=== PATIENT | male | born 1960 | race Caucasian/White ===

== ENCOUNTER 2016-09-25 17:44 | Emergency (ER) | payer BC ==
[~2016-09-25] VITALS: Ht 180.3 cm; Wt 89.1 kg
[2016-09-25 17:50] VITALS: TEMP 36.3; Ht 180.3 cm; Wt 89.1 kg
[2016-09-25] MEDS ORDERED: AMOX500T PO (18:13)
[2016-09-25] MEDS ORDERED: PRD/1 PO (18:13)
[2016-09-25] MEDS ORDERED: MoRPHine SULFATE 4 MG/ML 1 ML CARP\\VIAL IV STA (18:37)
[2016-09-25] MEDS ORDERED: ONDANSETRON INJ 2 MG/ML 2 ML VIAL IV STA (18:37)
[2016-09-25] MEDS ORDERED: PERCOCET HOME PACK PO ONE (19:15)
--- NOTE | 2016-09-25 19:35 | DIAGNOSTIC IMAGING REPORT ---
RIGHT WRIST 4 VIEWS CLINICAL HISTORY: Fall with right wrist pain. FINDINGS: 4 views of the right wrist are obtained. No prior studies are available for comparison at the time of dictation. The skeletal structures are well mineralized. There is an impacted and comminuted fracture of the distal radial metaphysis with intra-articular extension. There are small posteriorly distracted fragments. Mild apex volar angulation is noted. No additional fracture is seen. There is significant overlying soft tissue edema. The joint spaces of the wrist appear preserved. IMPRESSION: 1. Impacted and comminuted fracture of the distal radial metaphysis with intra-articular extension and overlying soft tissue edema as above. 2. No additional fracture is identified. Electronically signed by: Wilson Martinez M.D. 09/25/2016 7:33 PM
--- NOTE | 2016-09-25 20:13 | DIAGNOSTIC IMAGING REPORT ---
PA CHEST WITH RIGHT-SIDED RIB SERIES CLINICAL HISTORY: Fall with right-sided rib pain. FINDINGS: A PA chest radiograph with 4 additional views from a right-sided rib series are obtained. No prior studies are available for comparison at the time of dictation. The cardiomediastinal silhouette is unremarkable. The lungs and pleural spaces are clear. No pneumothorax is seen. There are acute and nondistracted right posterior seventh and eighth rib fractures. The remainder of the bony thorax is grossly intact. IMPRESSION: 1. The lungs are clear. 2. There are acute nondistracted right posterior seventh and eighth rib fractures. Electronically signed by: Wilson Martinez M.D. 09/25/2016 8:11 PM
[2016-09-25] MEDS ORDERED: OXYC-57 PO (20:26)
[2016-09-25 20:47] VITALS: BP 153/93; PULSE 83; O2SAT 96
--- NOTE | 2016-09-27 01:21 | EMERGENCY ROOM VISIT NOTE ---
ED Visit Note First contact with patient: 18:00 Chief Complaint: I fell off my truck and I think I broke my right arm. History of Present Illness: Mr. Peguero is a 55-year-old white male who ambulates into the ED accompanied by a female friend complaining of right lower arm pain and right sided rib pain. Patient reports approximately 20 minutes ago he accidentally fell out of his truck while he was sweeping the bed. He reports he fell to the ground. He believes he landed directly on his wrist. He reports before the fall there was no lightheadedness or dizziness, the time of the fall he did not strike his head and since the fall he has had no signs of head injury. Currently he is complaining of pain over the distal right radius and the right ribs. He rates his wrist discomfort 10/10. He describes this as a sharp and deep achy sensation. His pain worsens with all movement of the forearm, wrist and fingers. He has not identified any alleviating factors related to the pain. He reports he has not taken any medications for pain prior to arrival at the hospital. Associated with his pain he reports he has a tingling sensation throughout the fingers. He denies any associated symptoms including shoulder pain, elbow pain, proximal forearm pain. Additionally he denies any previous significant injuries or surgeries to the right upper extremity. Additionally he does complain of right anterior and posterior rib pain. He reports this is an achy sensation that becomes sharp with palpation and deep inspiration. His pain is nonradiating. He denies any associated symptoms with his rib pain including shortness of breath, difficulty breathing, cough. Additionally he denies chest pain, shortness of breath, abdominal pain, nausea/ vomiting. Review of Systems: As noted above in history of present illness. 8 body systems were reviewed and found to be negative as noted above. Past Medical History: Status post previous right knee and right wrist surgeries. Current Medications: Augmentin and prednisone. Allergies to Medications: Sulfa. Social History: Patient is currently employed; he feels safe in his home environment; he denies tobacco use and admits to alcohol use. Physical Examination: Vital Signs: Date Time Temp Pulse Resp B/P Pulse Ox O2 Delivery O2 Flow Rate FiO2 09/25/16 20:47 83 18 153/93 96 09/25/16 20:16 77 153/93 97 Room Air 09/25/16 17:50 36.3 94 18 196/132 97 Room Air GENERAL: 55-year-old male in moderate distress due to pain, nontoxic-appearing, afebrile and hemodynamically stable. NEUROLOGICAL: Awake, alert and oriented to person, place and time. Answering questions appropriately and following commands. Normal gait. SKIN: Warm, dry and pink. No soft tissue trauma noted. HEENT: Atraumatic and normocephalic. BACK: No tenderness over the bony cervical and thoracic spine. Full range of motion of the cervical spine. THORAX: Lungs sounds are clear to auscultation and equal bilaterally with symmetrical chest wall. Mild to moderate tenderness over the anterior and posterior aspects of the right-sided ribs of 7-9. No bony crepitus, deformity or subcutaneous air. ABDOMEN: Flat, soft and nontender. Positive bowel sounds in all quadrants. No guarding, rigidity or organomegaly. RIGHT UPPER EXTREMITY: No gross deformity noted at the level of the distal radius. No tenderness in the shoulder, humerus, elbow or proximal forearm. Moderate tenderness over the distal radius and ulna more prominent on the radius with moderate swelling and bony crepitus. No tenderness in the hand or fingers. No range of motion exercises were performed. Patient was able to wiggle his fingers. Throughout the hand the skin was warm and pink and capillary refill is brisk. He was able to distinguish light sensations through all dermatomes of the hand and fingers. ED Course: Patient is assessed as noted above. Right Wrist X-Rays: Were read by myself and the radiologist and shows an impacted and comminuted fracture of the distal radius with intra-articular extension and soft tissue swelling. Right rib x-rays: Were read by myself and shows acute nondisplaced right posterior seventh and eighth rib fractures. No infiltrates, effusions or pneumothorax. Patient's case was reviewed with Dr. Kim; because there was no distraction of the joint she recommended that orthopedics be contacted and review the case. An IV lock was initiated and patient received 4 mg of morphine IV and 4 mg of Zofran IV for his pain. Additionally he was given ice for pain and comfort. Patient's case was reviewed with Dr. Noyola, [facility]; he agreed that there was mild displacement but did not feel it needed to be reduced at this time. Patient was placed in an Ortho-Glass volar splint. Patient was educated about tonight's findings and instructed on his treatment plan; he verbalized understanding and agreement with this plan. Clinical Impression: Right radius wrist fracture. Right rib fractures. Status post fall. Disposition: Patient discharged home in stable condition accompanied by his girlfriend; prior to departure he was reassessed and subjectively reported he was feeling much better and rated his discomfort 2/10. Plan: Comfort measures were discussed with the patient including rest, ice, splint use and a sliding pain scale of ibuprofen, acetaminophen and Percocet. Additionally patient was instructed to do deep breathing exercises because of his rib pain to decrease risk of pneumonia. Patient was encouraged to follow-up with his proposal specialist for definitive care and treatment. Patient was encouraged to follow-up with his family physician for any concerns about his rib fractures Patient was encouraged return to the ED for worsening/uncontrolled pain, worsening numbness/tingling in the hands or fingers., Shortness of breath, coughing up blood, fevers or any new/concerning symptoms.
[2016-09-27] MEDS ORDERED: ASCA500 PO (15:36)
[2016-09-27] MEDS ORDERED: FLUT0.15 NAE (15:36)
[2016-09-27] MEDS ORDERED: AMOX875T PO (15:36)
[2016-09-27] MEDS ORDERED: PRD10 PO (15:36)
== END 2016-09-25 20:48 | disposition home or self-care (01) ==
LOC: C.EDB 17:46 → C.EDD 20:48
DX: S52.501A Unspecified fracture of the lower end of right radius, initial encounter for closed fracture (principal); S22.41XA Multiple fractures of ribs, right side, initial encounter for closed fracture; W17.89XA Other fall from one level to another, initial encounter; Z98.890 Other specified postprocedural states

== ENCOUNTER → 2016-09-26 | Outpatient (CLI) | payer BC ==
[~2016-09-26] MED LIST: AMOX500T PO; AMOX875T PO; ASCA500 PO; BUPIVACAINE 0.5 % 5 MG/1 ML PF 10ML VIAL ONE; FLUT0.15 NAE; OXYC-57 PO; PRD/1 PO; PRD10 PO
[2016-09-26 16:36] LABS: BASO % 0.2 %; BASO ABS # 0.02 K/uL (0-0.2); COMPLETE YES; EOS % 0.3 %; HEMATOCRIT 40.8 % (42-52); IG% 0.4 %; LYMPH % 11.7 %; LYMPH ABS # 1.33 K/uL (1.2-3.4); MEAN CELL VOLUME 88.3 fL (80-100); MEAN CORPUSCULAR HEMOGLOBIN 30.5 pg (25-34); MEAN CORPUSCULAR HGB CONC 34.6 g/dl (32-36); MEAN PLATELET VOLUME 9.3 fL (7.4-10.4); MONO % 7.9 %; NEUT % 79.5 %; PLATELET COUNT 432 K/uL (130-400); RED BLOOD COUNT 4.62 M/uL (4.7-6.1); WHITE BLOOD COUNT 11.37 K/uL (4.8-10.8)
[2016-09-26 16:56] LABS: BLOOD UREA NITROGEN 21 mg/dl (7-18); BUN/CREATININE RATIO 21.1 (10-20); CARBON DIOXIDE 26 mmol/L (21-32); CHLORIDE 107 mmol/L (98-107); GLUCOSE 120 mg/dl (70-99); POTASSIUM 4.6 mmol/L (3.5-5.1); SODIUM 140 mmol/L (136-145)
== END | disposition home or self-care (01) ==
LOC: C.CPL 15:44
PROVIDERS: ATTEND Orthopaedic Surgery
DX: Z01.812 Encounter for preprocedural laboratory examination (principal); Z01.811 Encounter for preprocedural respiratory examination; S52.599A Other fractures of lower end of unspecified radius, initial encounter for closed fracture; X58.XXXA Exposure to other specified factors, initial encounter

== ENCOUNTER 2016-09-30 10:32 | Day surgery (SDC) | payer BC ==
[2016-09-27 15:36] VITALS: BMI 26.0
--- NOTE | 2016-09-29 16:06 | HISTORY & PHYSICAL EXAMINATION ---
DATE OF ADMISSION: 09/30/2016 HISTORY AND PHYSICAL ADMISSION NOTE CHIEF COMPLAINT: Right distal radius fracture. HISTORY OF PRESENT ILLNESS: Grey is a pleasant 55-year-old right hand dominant male who works as a [employer]. Yesterday, he fell off his truck bed and sustained a right distal radius fracture. There was significant displacement and decision was made that he was best treated with operative fixation. He understands the risks, benefits, alternatives to the procedure and elected to proceed. PAST MEDICAL HISTORY: Significant for recent pneumonia for which he was treated with Augmentin and prednisone. PAST SURGICAL HISTORY: Significant for right knee surgery, right carpal tunnel release and tonsillectomy. ALLERGIES: SULFA. MEDICATIONS: Include prednisone and Augmentin for the pneumonia, which he is recovering from; ibuprofen and Percocet for the wrist pain. FAMILY HISTORY: Noncontributory. SOCIAL HISTORY: He is , has 3 children, rarely drinks. Denies any tobacco or IV drug use. REVIEW OF SYSTEMS: He complains of right wrist pain. All other pertinent review of systems are negative. PHYSICAL EXAMINATION: GENERAL: He is awake, alert and oriented x3. He is in no apparent distress. He is very pleasant. HEENT: Pupils are equal, round and reactive to light. Extraocular motion intact. Oral mucosa is pink and moist. VITAL SIGNS: Regular rate per radial pulse. LUNGS: Clarissa symmetrically bilaterally with no audible breath sounds. ABDOMEN: Soft, nontender, nondistended. MUSCULOSKELETAL: On physical examination, he is in a wrist splint. He can actively move all of his fingers. He has no loss of sensation. IMAGING DATA: X-rays of the right wrist do show a comminuted 3-part right distal radius fracture. IMPRESSION: Comminuted distal radius fracture. PLAN: Will proceed with an open reduction internal fixation of the right wrist. Postoperatively, he will be placed in arm sling and discharged to home on oral pain medications.
[~2016-09-30] VITALS: Ht 180.3 cm; Wt 86.2 kg
[~2016-09-30 10:32] MED LIST changes: +ACETAMINOPHEN 500 MG TAB PO SCH; -AMOX500T PO; +CEFAZOLIN 2000 MG/60 ML D5W 60 ML IV SCH; +DEXAMETHASONE SOD INJ 4 MG/ML VIAL ONE; +FAMOTIDINE 20 MG TAB PO SCH; +GABAPENTIN 300 MG CAP PO SCH; +LACTATED RINGER'S 1000ML IV SCH; -PRD/1 PO
[2016-09-30 11:15] VITALS: BP 158/104; PULSE 88; TEMP 36.9; O2SAT 97; Ht 180.3 cm; Wt 86.2 kg
[2016-09-30] MEDS ORDERED: ONDANSETRON INJ 2 MG/ML 2 ML VIAL IV PRN ×2 (12:00→15:00)
[2016-09-30] MEDS ORDERED: FENTANYL CITRATE INJ 50 MCG/1 ML 2 ML VIAL IV PRN (12:00)
[2016-09-30] MEDS ORDERED: LACTATED RINGER'S 1000ML 1,000 ML IV PRN (12:00)
[2016-09-30] MEDS ORDERED: ONDANSETRON INJ 2 MG/ML 2 ML VIAL ONE (12:08)
[2016-09-30] MEDS ORDERED: MIDAZOLAM HCL 1 MG/ML 2ML VIAL ONE (12:08)
[2016-09-30] MEDS ORDERED: DEXAMETHASONE SOD INJ 4 MG/ML VIAL ONE (12:08)
[2016-09-30] MEDS ORDERED: LIDOCAINE HCL 2% 2 ML VIAL (20MG/ML) ONE (12:08)
[2016-09-30] MEDS ORDERED: PROPOFOL IV EMULSION 10 MG/ML 20 ML VIAL IV ONE (12:08)
[2016-09-30] MEDS ORDERED: FENTANYL CITRATE INJ 50 MCG/1 ML 2 ML VIAL ONE (12:08)
--- NOTE | 2016-09-30 12:41 | History & Physical Bridge Note ---
H&P Re-Evaluation Bridge Note: I have examined the patient, reviewed the History & Physical and in the interval since the performance of the History & Physical I have noted the following changes of clinical significance: No changes noted
[2016-09-30] MEDS ORDERED: BUPIVACAINE 0.25% W/EPI 1:200,000 INJ ONE (14:29)
--- NOTE | 2016-09-30 14:30 | DIAGNOSTIC IMAGING REPORT ---
INTRAOPERATIVE RADIOGRAPHS CLINICAL HISTORY: Open reduction and internal fixation of the right wrist. Fluoroscopy time: 51 seconds. FINDINGS: 2 spot fluoroscopic views of the right wrist are correlated with radiograph dated 09/25/2016. There is been buttress plate fixation of an impacted and comminuted distal radial fracture. There has been christian of near-anatomic alignment. Numerous cortical lag screws transfix the buttress plate. Overlying soft tissue edema is noted. IMPRESSION: Intraoperative images from open reduction and internal fixation of a distal right radial fracture. Electronically signed by: Wilson Martinez M.D. 09/30/2016 2:28 PM Dictated Date/Time: 09/30/2016 2:26 PM
--- NOTE | 2016-09-30 14:30 | DIAGNOSTIC IMAGING REPORT ---
INTRAOPERATIVE RADIOGRAPHS CLINICAL HISTORY: Open reduction and internal fixation of the right wrist. Fluoroscopy time: 51 seconds. FINDINGS: 2 spot fluoroscopic views of the right wrist are correlated with radiograph dated 09/25/2016. There is been buttress plate fixation of an impacted and comminuted distal radial fracture. There has been nondenominational of near-anatomic alignment. Numerous cortical lag screws transfix the buttress plate. Overlying soft tissue edema is noted. IMPRESSION: Intraoperative images from open reduction and internal fixation of a distal right radial fracture. Electronically signed by: Wilson Martinez M.D. 09/30/2016 2:28 PM Dictated Date/Time: 09/30/2016 2:26 PM
[2016-09-30] MEDS ORDERED: OXYC-57 PO (14:52)
[2016-09-30] MEDS ORDERED: SODIUM CHLORIDE 0.9% 1000ML 1,000 ML IV SCH (14:53)
--- NOTE | 2016-09-30 14:53 | Discharge Instructions ---
Discharge Instructions Admission Reason for Admission: Closed Fracture Of Radius Distal End, Closed Fract Discharge Discharge Diagnosis / Problem: SAME ABOVE Discharge Goals Goal(s): Decrease discomfort, Improve function Activity Recommendations Activity Limitations: as noted below Lifting Limitations: until after follow-up appointment Exercise/Sports Limitations: until after follow-up appointment Driving or Machine Use: IF OFF OF PAIN MEDICATION . Instructions / Follow-Up Instructions / Follow-Up MEDICATIONS: * Resume previous medications unless instructed otherwise by your surgeon. * Always take pain medication on a full stomach or with food to avoid upset stomach. * Do not drink alcohol or drive while taking narcotics. * Ibuprofen or Tylenol may be taken if narcotic not needed. SPECIAL CARE INSTRUCTIONS: __ None _X_ Keep extremity elevated and iced x 48 hours; apply ice 20-30 minutes 8-10 times/day. May remove at night. __ Sling __24 hrs/day __ Remove at night __ Shoulder Immobilizer __ 24 hrs/day __ Remove at night _X_ Dressing _X_ Maintain until seen in office, may shower with plastic over site __ Remove dressings in 24-48 hours and then may shower __ Cover incisions with band-aids after showering __ Do not remove steri-strips Call physician if chills or temperature rises above 102 degrees or pain unrelieved by prescribed pain medications at . . Current Hospital Diet Patient's current hospital diet: Discharge Diet Recommended Diet: Regular Diet Fluid Restriction: None Procedures Procedures Performed: Right Distal Radius Open Reduction Internal Fixation Pending Studies Studies pending at discharge: no Medical Emergencies . Who to Call and When: Medical Emergencies: If at any time you feel your situation is an emergency, please call 911 immediately. . Non-Emergent Contact Non-Emergency issues call your: Primary Care Provider Call Non-Emergent contact if: you have a fever, temperature is above 101.5 . "Provider Documentation" section prepared by Kenny Riley. VTE Core Measure Inpt VTE Proph given/why not?: SCD's
[2016-09-30] MEDS ORDERED: OXYCODONE/ACETAMINOPHEN 5-325 TAB PO PRN ×2 (15:00)
[2016-09-30] MEDS ORDERED: LABETALOL HCL IV 5 MG/ML 20ML ONE (15:17)
[2016-09-30] MEDS ORDERED: NURSING VERBAL MED ORDER ONE (15:17)
--- NOTE | 2016-09-30 15:24 | OPERATIVE REPORT ---
DATE OF OPERATION: 09/30/2016 PREOPERATIVE DIAGNOSIS: Three-part right distal radius fracture. POSTOPERATIVE DIAGNOSIS: Same. PROCEDURE: Open reduction and internal fixation of 3-part distal radius fracture. SURGEON: Dr. Nolberto Vasques. CHEMICAL PLANT MANAGER: Kenny Riley PA-C, whose assistance was necessary for positioning of the hand and helping with instrumentation. ANESTHESIA: General with a right axillary block. COMPLICATIONS: None. CONDITION: Stable to PACU. IMPLANTS USED: I used a Synthes right distal radial locking plate. INDICATIONS: Grey is a pleasant 55-year-old male who fell out of the back of a pickup truck a couple days ago, sustaining a displaced right distal radius fracture. There was an intermediate column fracture and a large radial column fracture. He elected to undergo open reduction and internal fixation. OPERATION AND FINDINGS: On 09/30/2016, he arrived at [facility] for the above procedure. He was seen in the preoperative holding area and the operative extremity was identified and signed. He was then given a preoperative antibiotic and an axillary block. He was then taken back to the operating room, laid on the table in supine position and put under general anesthesia. The right hand was then prepped and draped in sterile fashion. Time-out was done and the patient and operative extremity was properly identified. A distal Bandar approach was used with incision made over the flexor carpi radialis. Dissection was taken down to the tendon and the FCR was retracted radially. The quadratus was then tenotomized off the radial side of the radial shaft and the fracture was exposed. Time was spent freeing up the fracture fragments and then obtaining an anatomic alignment of the fracture. A single guide pin was placed in the radial styloid and across the fracture to hold it in place. A Synthes 3-hole distal radial locking plate was then trialed and seemed to be a good fit. A single screw was placed in the combination hole. With the use of fluoroscopy, I was able to make sure the plate was appropriately positioned and the screw was locked down. With the use of a variable angle guide, 5 locking screws were placed distally and 2 radial styloid screws were placed. Care was taken not to penetrate the dorsal cortex and to ensure that all the screws were out of the joint. Two additional locking screws were placed in the shaft of the radial plate. Final x-rays were taken and I was happy with the overall alignment. The wound was then irrigated and attempt was made at repairing the quadratus but I was unable to get any kind of bite in the muscle tissue. The surrounding soft tissues were then injected with 20 mL of Marcaine with epinephrine. The tourniquet was deflated and hemostasis was easily obtained. The skin was then closed with 3-0 Vicryl and a running 3-0 V-Loc suture and a Prineo dressing was placed. He was then placed in a 4-inch volar arm splint, extubated, transferred to a [facility] and taken to the postanesthesia care unit in stable condition. He tolerated the procedure well. I attest to the content of the Intraoperative Record and any orders documented therein. Any exceptio ns are noted below.
--- NOTE | 2016-09-30 15:36 | Anesthesiology Progress Note ---
Anesthesia Post Op Note Date & Time Sep 30, 2016 at 15:36 Vital Signs Pain Intensity: 0 Vital Signs Past 12 Hours Date Time Temp Pulse Resp B/P Pulse Ox O2 Delivery O2 Flow Rate FiO2 09/30/16 15:30 36.6 75 16 142/98 97 09/30/16 15:20 81 12 135/94 97 Room Air 09/30/16 15:10 87 16 149/103 97 Mask 10 09/30/16 15:00 91 18 130/94 100 Mask 10 09/30/16 14:52 36.2 77 12 118/89 100 Mask 10 09/30/16 12:59 79 16 131/94 99 Mask 5 09/30/16 12:50 84 18 140/92 99 Mask 5 09/30/16 11:15 36.9 88 18 158/104 97 Room Air Notes Mental Status: alert / awake / arousable, participated in evaluation Pt Amnestic to Procedure: Yes Nausea / Vomiting: adequately controlled Pain: adequately controlled Airway Patency, RR, SpO2: stable & adequate BP & HR: stable & adequate Hydration State: stable & adequate Anesthetic Complications: no major complications apparent
[2016-09-30 15:40] VITALS: BP 132/97; PULSE 84; TEMP 36.6; O2SAT 97
[2016-09-30 16:10] VITALS: BP 141/96; PULSE 85; O2SAT 97
[2016-09-30 16:45] VITALS: BP 148/97; PULSE 90; TEMP 36.4; O2SAT 97
== END 2016-09-30 17:06 | disposition home or self-care (01) ==
LOC: C.ACU 10:32
PROVIDERS: ATTEND Orthopaedic Surgery
DX: S52.501A Unspecified fracture of the lower end of right radius, initial encounter for closed fracture (principal); V99.XXXA Unspecified transport accident, initial encounter; J18.9 Pneumonia, unspecified organism; Y93.89 Activity, other specified; Y92.89 Other specified places as the place of occurrence of the external cause; Y99.8 Other external cause status; Z98.890 Other specified postprocedural states; Z88.2 Allergy status to sulfonamides

== ENCOUNTER → 2018-02-06 | Outpatient (CLI) | payer OTHER ==
[~2018-02-06] MED LIST changes: -ACETAMINOPHEN 500 MG TAB PO SCH; -AMOX875T PO; -BUPIVACAINE 0.5 % 5 MG/1 ML PF 10ML VIAL ONE; -CEFAZOLIN 2000 MG/60 ML D5W 60 ML IV SCH; -DEXAMETHASONE SOD INJ 4 MG/ML VIAL ONE; -FAMOTIDINE 20 MG TAB PO SCH; -GABAPENTIN 300 MG CAP PO SCH; -LACTATED RINGER'S 1000ML IV SCH; -OXYC-57 PO; -PRD10 PO
--- NOTE | 2018-02-06 18:58 | DIAGNOSTIC IMAGING REPORT ---
VENOUS DOPP LOWER EXT UNILAT HISTORY: 57 years-old Male M79.661 acute pain and swelling of the right lower extremity COMPARISON: None available TECHNIQUE: Multiple real-time sonographic images of the right lower extremity deep venous structures were obtained assessing grayscale appearance, color and spectral flow FINDINGS: There is normal compressibility, flow, phasicity and augmentation of the right lower extremity deep venous structures. No focal abnormality seen within the right calf at the area of clinical concern. IMPRESSION: No sonographic evidence of deep venous thrombosis. The above report was generated using voice recognition software. It may contain grammatical, syntax or spelling errors. Electronically signed by: Otilio Villagomez M.D. 02/06/2018 6:57 PM Dictated Date/Time: 02/06/2018 6:56 PM
== END | disposition home or self-care (01) ==
LOC: C.ULTR 18:21
PROVIDERS: ATTEND Family Medicine
DX: M79.661 Pain in right lower leg (principal)

== ENCOUNTER 2022-03-15 16:34 | Inpatient (IN) ==
--- NOTE | 2022-03-15 17:02 | Emergency Department Note ---
Impression & Plan Acute CVA (cerebrovascular accident), Hypertension, Acute right-sided weakness, Facial droop ED Provider Note NAME: ORIANA ERVIN AGE: 61 SEX: M : 1960 ARRIVES VIA: Ambulance INFORMANT: [Patient] ED PROVIDER(S): [Wilson Lopez MD] Patient first seen by me at 1646. CHIEF COMPLAINT: Stroke symptoms HISTORY OF PRESENT ILLNESS: The patient is a 61-year-old male with a history of high blood pressure. The patient states that he was in his normal health today till around 1330 when he was walking and felt his right leg was heavy and not working properly. His sy mptoms began about 3 hours and 15 minutes ago. He sat down in his home and things seemed to spread to his right arm and right shoulder. The patient states that he could not move his leg or arm. He did lose urinary continence during this timeframe. The patient thinks he actually may have passed out for a short time. He states that about an hour or so after his symptoms began, things seemed to start to improve and now, he feels almost completely back to baseline. His right side still feels a bit different than the left but he is able to move everything and follow commands when asked. There is no headache, there has been no cough or cold or congestion or shortness of breath. He has had no fever. He was fine earlier in the day. REVIEW OF SYSTEMS: See HPI for pertinent positives and negatives. A total of ten systems were reviewed and were otherwise negative. PMHx/PSHx: See Below SOCIAL HISTORY: See Below. PHYSICAL EXAM: GENERAL: Patient is in no acute distress. HEENT: No acute trauma, normocephalic atraumatic, mucous membranes moist, no nasal congestion, no scleral icterus. NECK: No stridor, no adenopathy, no meningismus, trachea is midline. LUNGS: Clear to auscultation bilaterally, no wheeze, no rhonchi, breath sounds equal. HEART: Without murmurs gallops or rubs, regular rate and rhythm. ABDOMEN: Soft, nontender, bowel sounds positive, no peritonitis. EXTREMITIES: No cyanosis or edema, full range of motion of all the joints without pain or difficulty, no signs for acute trauma. NEUROLOGIC: Oriented x 3. The patient does not have any speech slur. There is no true facial droop although, when he speaks, the right upper lip seems a bit droopy compared to the left. No extremity drift, no cerebellar dysfunction. Stroke scale as per nursing staff is 0. SKIN: No rash, no jaundice, no diaphoresis. DIFFERENTIAL DIAGNOSIS: Infection, dehydration, metabolic abnormality, hypo/hyperglycemia, electrolyte disturbance, anemia, hypoxia, cardiac sources, intracerebral event, toxicologic issues, stroke, TIA, as well as other pathologies. EMERGENCY DEPARTMENT COURSE/PROCEDURES: ECG: Indication was potential stroke. The ECG shows a normal sinus rhythm with a rate of 83. There is some nonspecific ST change noted diffusely. There is no ST elevation, no PVCs. The QTc is 453. Continuous Cardiac Monitoring: An order was placed for continuous cardiac monitoring. The monitor shows a rate of 82 with normal sinus rhythm. Critical Care Note: I have personally spent 52 minutes of critical care time in the direct management of this patient. This includes bedside care, interpretation of diagnostic studies, and testing, discussion with consultants, patient, and family members, and other required patient management activities. This 52 minutes is in excess of all separately billable procedures. MEDICAL DECISION MAKING: There is a mild leukocytosis, this could be from infection or the stress of his situation. A mild anemia was noted. There was a normal platelet count. No coagulopathy. No renal failure or significant electrolyte abnormality. No concerning liver enzyme elevation. ECG showed a normal sinus rhythm, no ischemia. Cardiac enzyme testing x1 was not consistent with acute cardiac injury. COVID test returned negative. Brain CT showed no acute bleed or mass- effect. CT angio of the head and neck were performed. There was some narrowing and plaque of the neck on angio, no clot. The patient did have some distal clot on the CT angio of the head. The clot findings were on the left. The left sided CT angio findings I do think explain his right-sided symptoms. Brain MRI confirmed a small stroke. The patient presented to the ED with stroke symptoms that had resolved as per the nursing staff. A stroke alert was not called by nursing because the patient's stroke scale as per their assessment was 0. When I saw the patient in the room, I did think he had a slight facial droop with speaking. The droop was not apparent when he was not speaking. A stroke alert was then called. The patient was seen by the stroke neurologist from [facility] via telemedicine. The patient was not a candidate for tPA as he had already had marked improvement and he was felt to be out of the tPA window. The patient was ordered for oral aspirin and oral Plavix at the request of the [facility] neurologist. He was to receive these meds if he passed his dysphagia screen. He received a small dose of IV labetalol, 5 mg, for his elevated blood pressure. He received IV Tylenol for a headache that he developed while he was in the ED. The patient is in need of a hospital stay. He has suffered a stroke. Further work-up and care is warranted. I spoke with the patient and case management. I spoke with the on-call hospitalist. Past Med/Surg History Medical History Allergic rhinitis Essential (primary) hypertension History of 2019 novel coronavirus disease (COVID-19) Surgical History History of carpal tunnel release History of surgery on arm History of tonsillectomy S/P right knee surgery Family History Mother Stroke, Onset Age: 60 Father Dementia Social History Smoking Status: Never smoker Hx Alcohol Use: Yes (1-2 per month) Hx Substance Use: No Preferred Language: Greenlandic Current Living Situation: Spouse current occupational status: retired current occupation: owns [employer] business Feels Safe at Home: Yes Allergies Allergies Allergy/AdvReac Type Severity Reaction Status Date / Time Sulfa (Sulfonamide Allergy Unknown Hives Verified 03/15/22 17:19 Antibiotics) Home Meds Home Medications Medication Instructions Recorded Confirmed losartan 50 mg tablet 50 mg PO DAILY 03/15/22 03/15/22 Results & Data (ED) Vital Signs Vital Signs - 24 hr 03/15/22 17:15 03/15/22 17:21 Temperature 37.1 C Temperature Source Oral Pulse Rate 92 H Pulse Rate [Apical] 90 Respiratory Rate 24 Respiratory Effort / Characteristics Non-Labored Respiratory Depth Normal Blood Pressure [Right Arm] 161/115 H Blood Pressure Mean [Right Arm] 130 Pulse Oximetry 97 Oxygen Delivery Method Room Air Sepsis Recent Fever Within 48 Hours No Sepsis New/Unexplained Change in Mental Status Yes Sepsis Action Taken by Nursing No Action Required Home Medications Current Medication List: was personally reviewed by me Laboratory Data Attestation: I reviewed the patient's lab results. Result diagrams: 03/15/22 16:52 03/15/22 16:52 Lab Results 03/15/22 03/15/22 03/15/22 Range/Units 16:47 16:52 16:52 WBC 12.51 H (4.8-10.8) K/uL RBC 4.38 L (4.7-6.1) M/uL Hgb 13.3 L (14.0-18.0) g/dL POC Hgb (14.0-18.0) g/dl Hct 39.1 L (42-52) % POC Hct (42-52) % MCV 89.3 (80-100) fL MCH 30.4 (25-34) pg MCHC 34.0 (32-36) g/dL RDW Std Deviation 41.7 (36.4-46.3) fL RDW Coeff of Avis 12.8 (11.5-14.5) % Plt Count 322 (130-400) K/uL MPV 9.4 (7.4-10.4) fL Immature Gran % (Auto) 0.2 % Neut % (Auto) 83.9 % Lymph % (Auto) 8.5 % [place] % (Auto) 6.0 % Eos % (Auto) 1.1 % Baso % (Auto) 0.3 % Neut # (Auto) 10.50 H (1.4-6.5) K/uL Lymph # (Auto) 1.06 L (1.2-3.4) K/uL [place] # (Auto) 0.75 H (0.11-0.59) K/uL Eos # (Auto) 0.14 (0-0.5) K/uL Baso # (Auto) 0.04 (0-0.2) K/uL Immature Gran # (Auto) 0.02 (0.00-0.02) K/uL PT 10.7 (9.0-12.0) Seconds INR 1.0 (0.9-1.1) APTT 21.1 (21.0-31.0) Seconds PTT Ratio 0.8 POC Sodium (135-144) mmol/L Sodium (136-145) mmol/L POC Potassium (3.3-5.0) mmol/L Potassium (3.5-5.1) mmol/L POC Chloride (101-112) mmol/L Chloride (98-107) mmol/L Carbon Dioxide (21-32) mmol/L POC Total CO2 (24-31) mmol/L Anion Gap (3-11) POC Anion Gap (16-25) mmol/L POC BUN (7-18) mg/dl BUN (6-23) mg/dl Creatinine (0.6-1.4) mg/dl POC Creatinine (0.6-1.3) mg/dl Est Cr Clr Drug Dosing ml/min Est GFR ( Amer) ml/min Est GFR (Non-Af Amer) ml/min BUN/Creatinine Ratio (10-20) Glucose (70-99(Fasting)) mg/dl POC Glucose 104 H (70-99) mg/dl POC Glucose (other) (70-99) mg/dl Calcium (8.5-10.1) mg/dl POC Ioniz Calcium Shameka (1.12-1.32) mmol/l Magnesium (1.7-2.4) mg/dl Total Bilirubin (0.2-1.0) mg/dl AST (13-39) U/L ALT (7-52) U/L Alkaline Phosphatase (34-104) U/L Troponin I High Sens (0-20) pg/ml Total Protein (6.0-8.3) gm/dl Albumin (3.4-5.0) gm/dl Globulin (2.5-4.0) gm/dl Albumin/Globulin Ratio (0.9-2) SARS-CoV-2, RNA, NAAT (NEGATIVE) 03/15/22 03/15/22 03/15/22 Range/Units 16:52 16:55 17:20 WBC (4.8-10.8) K/uL RBC (4.7-6.1) M/uL Hgb (14.0-18.0) g/dL POC Hgb 13.3 L (14.0-18.0) g/dl Hct (42-52) % POC Hct 39 L (42-52) % MCV (80-100) fL MCH (25-34) pg MCHC (32-36) g/dL RDW Std Deviation (36.4-46.3) fL RDW Coeff of Avis (11.5-14.5) % Plt Count (130-400) K/uL MPV (7.4-10.4) fL Immature Gran % (Auto) % Neut % (Auto) % Lymph % (Auto) % Bartow % (Auto) % Eos % (Auto) % Baso % (Auto) % Neut # (Auto) (1.4-6.5) K/uL Lymph # (Auto) (1.2-3.4) K/uL [place] # (Auto) (0.11-0.59) K/uL Eos # (Auto) (0-0.5) K/uL Baso # (Auto) (0-0.2) K/uL Immature Gran # (Auto) (0.00-0.02) K/uL PT (9.0-12.0) Seconds INR (0.9-1.1) APTT (21.0-31.0) Seconds PTT Ratio POC Sodium 139 (135-144) mmol/L Sodium 137 (136-145) mmol/L POC Potassium 4.3 (3.3-5.0) mmol/L Potassium 4.4 (3.5-5.1) mmol/L POC Chloride 104 (101-112) mmol/L Chloride 105 (98-107) mmol/L Carbon Dioxide 26 (21-32) mmol/L POC Total CO2 23 L (24-31) mmol/L Anion Gap 6 (3-11) POC Anion Gap 18.0 (16-25) mmol/L POC BUN 22 H (7-18) mg/dl BUN 22 (6-23) mg/dl Creatinine 1.18 (0.6-1.4) mg/dl POC Creatinine 1.2 (0.6-1.3) mg/dl Est Cr Clr Drug Dosing 73.1 ml/min Est GFR ( Amer) 77.3 ml/min Est GFR (Non-Af Amer) 66.7 ml/min BUN/Creatinine Ratio 18.6 (10-20) Glucose 81 (70-99(Fasting)) mg/dl POC Glucose (70-99) mg/dl POC Glucose (other) 90 (70-99) mg/dl Calcium 8.9 (8.5-10.1) mg/dl POC Ioniz Calcium Shameka 1.19 (1.12-1.32) mmol/l Magnesium 2.1 (1.7-2.4) mg/dl Total Bilirubin 0.6 (0.2-1.0) mg/dl AST 14 (13-39) U/L ALT 15 (7-52) U/L Alkaline Phosphatase 51 (34-104) U/L Troponin I High Sens 3.6 (0-20) pg/ml Total Protein 6.9 (6.0-8.3) gm/dl Albumin 4.3 (3.4-5.0) gm/dl Globulin 2.6 (2.5-4.0) gm/dl Albumin/Globulin Ratio 1.7 (0.9-2) SARS-CoV-2, RNA, NAAT NEGATIVE (NEGATIVE) Administered Medications Discontinued Medications Acetaminophen (Acetaminophen 1000 Mg/100 Ml Iv) 1,000 mg IV NOW STA Stop: 03/15/22 18:10 Last Admin: 03/15/22 18:24 Dose: 1,000 mg Documented by: [id number] Aspirin (Aspirin Chew 324 Mg) 324 mg PO NOW STA Stop: 03/15/22 18:10 Last Admin: 03/15/22 18:23 Dose: 324 mg Documented by: [id number] Clopidogrel Bisulfate (Clopidogrel Bisulfate 300 Mg Tab) 300 mg PO NOW STA Stop: 03/15/22 18:10 Last Admin: 03/15/22 18:23 Dose: 300 mg Documented by: [id number] Ioversol (Optiray 320 125ml) 120 ml IV ONCE ONE Stop: 03/15/22 17:05 Last Admin: 03/15/22 17:04 Dose: 120 ml Documented by: [id number] Labetalol HCl (Labetalol Hcl Iv 5 Mg/Ml 20ml) 5 mg IV NOW STA Stop: 03/15/22 18:11 Last Admin: 03/15/22 18:24 Dose: 5 mg Documented by: [id number] Cosigned by: [id number] Imaging Data Radiologist's Impression: Head CT 03/15/22 16:57 CT OF THE HEAD WITHOUT CONTRAST CLINICAL HISTORY: Stroke Like Symptoms COMPARISON STUDY: No previous studies for comparison. TECHNIQUE: Helical axial images of the head were obtained without IV contrast. Automated exposure control was utilized for the study. A dose lowering technique was utilized adhering to the principles of ALARA. FINDINGS: No acute intracranial hemorrhage, midline shift or mass effect is present. The ventricular system is unremarkable. The basal cisterns are patent. No extra-axial collections are present. There are no findings to suggest acute dural sinus thrombosis or acute territorial infarct. No significant calvarial ab normalities are present. There is mild ethmoid sinus mucosal thickening. Small amount of fluid within the right mastoid air cells is present. IMPRESSION: No acute intracranial findings. ACT 112: Negative or not required by law. Electronically signed by: Denzel Multani M.D. 03/15/2022 5:14 PM Head CTA 03/15/22 16:57 CTA ANGIOGRAPHY OF THE HEAD CLINICAL HISTORY: Stroke Like Symptoms COMPARISON STUDY: No previous studies for comparison. TECHNIQUE: Helical axial images of the head were obtained following uneventful intravenous administration of 120 cc of Optiray. Sagittal and coronal reconstructions were viewed as well as maximal intensity projections on an independent 3-D workstation. Automated exposure control was utilized for the study. A dose lowering technique was utilized adhering to the principles of ALARA. FINDINGS: Head CT will be reported separately. No acute intracranial hemorrhage is depicted on that exam. Ventricular system is normal. Small amount of fluid within the right mastoid air cells is noted. There is mild ethmoid sinus mucosal thickening. The bilateral M1 and A1 segments are patent. Note is made of occlusion of the left A2 segment shown on axial image 125 of 249. There is distal reconstitution. There is additional occlusion of a smaller distal branch es of the left anterior cerebral artery shown on axial image 174 of 249 as well as axial image 130 of 249. Bilateral M2 segments are intact. Posterior circulation is unremarkable. There is no intracranial aneurysm. There is no dissection within the intracranial vessels. IMPRESSION: Abrupt occlusion with reconstitution of the left A2 segment. In addition, occlusion of several smaller branches of the left anterior cerebral artery, as described above. Findings discussed with Dr. Lopez at time of dictation. ACT 112: Negative or not required by law. Electronically signed by: Denzel Multani M.D. 03/15/2022 5:30 PM Neck CTA 03/15/22 16:57 CT ANGIOGRAPHY OF THE NECK WITH CONTRAST CLINICAL HISTORY: Stroke Like Symptoms COMPARISON STUDY: No previous studies for comparison. Technique: CT angiography of the carotid and vertebral arteries was obtained using Optiray and 3D reconstruction on an independent workstation. NASCET criteria was utilized. Automated exposure control was utilized for the study. A dose lowering technique was utilized adhering to the principles of ALARA. CT DOSE: 1152.66 mGy.cm Findings: Subpleural densities within the lung apices favor scarring. There is no cervical lymphadenopathy. No acute cervical spine fracture is noted. There is moderate plaque within the left carotid bifurcation without stenosis. There is mild to moderate plaque within the right carotid bifurcation without stenosis. There is no dissection within the major vessels of the neck. There is no aneurysm. Bilateral vertebral arteries are patent. IMPRESSION: 1. No dissection or significant stenosis within the bilateral common carotid, cervical internal carotid or vertebral arteries. 2. Moderate atherosclerotic plaque within the bilateral carotid bifurcations, greater on the left. ACT 112: Negative or not required by law. Electronically signed by: Denzel Multani M.D. 03/15/2022 5:23 PM Brain MRI 03/15/22 18:09 MRI OF THE BRAIN WITHOUT CONTRAST CLINICAL HISTORY: stroke by exam and CT COMPARISON STUDY: Head CT and CTA of the head performed earlier today. TECHNIQUE: Utilizing a 1.5 Danae magnet and dedicated coil, multiplanar, multiecho imaging of the brain was performed without IV contrast. FINDINGS: Note is made of a small focus of restricted diffusion within the superior left frontal lobe which measures approximately 2 cm in extent. There is mild associated T2 hyperintensity. There is no mass effect. No hemorrhage is present. No additional foci of restricted diffusion are present. Ventricular system is unremarkable. Basal cisterns are patent. There are no extra-axial collections. Flow-voids for the major intracranial vessels are present. Calvarial signal is within normal limits. Fluid within the right mastoid air cells is present. There is moderate ethmoid sinus mucosal thickening. No intracranial masses identified on this unenhanced exam. There may be an old lacunar infarct within the left internal capsule. IMPRESSION: Small focus of restricted diffusion, measuring approximately 2 cm in extent, within the superior left frontal lobe consistent with an acute infarct. No mass effect. No hemorrhage. ACT 112: Negative or not required by law. Electronically signed by: Denzel Multani M.D. 03/15/2022 8:54 PM Discharge Plan Visit Data Chief Complaint: TIA Symptoms ED Provider: Wilson Lopez Discharge Problem: Acute CVA (cerebrovascular accident), Hypertension, Acute right-sided weakness, Facial droop Patient Disposition: Admitted As Inpatient Condition: Fair Discharge Instructions Interventions: ED Discharge Assessment Last Done: 03/15/22 20:34
[2022-03-15] MEDS ORDERED: OPTIRAY 320 125ml IV ONE (17:04)
[2022-03-15 17:08] LABS: iSTAT Creatinine 1.2 mg/dl (0.6-1.3); iSTAT Hemoglobin 13.3 g/dl (14.0-18.0); iSTAT Ionized Calcium 1.19 mmol/l (1.12-1.32); iSTAT Potassium 4.3 mmol/L (3.3-5.0)
--- NOTE | 2022-03-15 17:17 | CT Scan Report ---
CT OF THE HEAD WITHOUT CONTRAST CLINICAL HISTORY: Stroke Like Symptoms COMPARISON STUDY: No previous studies for comparison. TECHNIQUE: Helical axial images of the head were obtained without IV contrast. Automated exposure con trol was utilized for the study. A dose lowering technique was utilized adhering to the principles o f ALARA. FINDINGS: No acute intracranial hemorrhage, midline shift or mass effect is present. The ventricular system is unremarkable. The basal cisterns are patent. No extra-axial collections are present. There are no findings to suggest acute dural sinus thrombosis or acute territorial infarct. No significant calvarial abnormalities are present. There is mild ethmoid sinus mucosal thickening. Small amount of fluid within the right mastoid air cells is present. IMPRESSION: No acute intracranial findings. ACT 112: Negative or not required by law. Electronically signed by: Denzel Multani M.D. 03/15/2022 5:14 PM
--- NOTE | 2022-03-15 17:25 | CT Scan Report ---
CT ANGIOGRAPHY OF THE NECK WITH CONTRAST CLINICAL HISTORY: Stroke Like Symptoms COMPARISON STUDY: No previous studies for comparison. Technique: CT angiography of the carotid and vertebral arteries was obtained using Optiray and 3D rec onstruction on an independent workstation. NASCET criteria was utilized. Automated exposure control was utilized for the study. A dose lowering technique was utilized adhering to the principles of ALA RA. CT DOSE: 1152.66 mGy.cm Findings: Subpleural densities within the lung apices favor scarring. There is no cervical lymphadeno angie. No acute cervical spine fracture is noted. There is moderate plaque within the left carotid bi furcation without stenosis. There is mild to moderate plaque within the right carotid bifurcation wit hout stenosis. There is no dissection within the major vessels of the neck. There is no aneurysm. Vinh ateral vertebral arteries are patent. IMPRESSION: 1. No dissection or significant stenosis within the bilateral common carotid, cervical internal carot id or vertebral arteries. 2. Moderate atherosclerotic plaque within the bilateral carotid bifurcations, greater on the left. ACT 112: Negative or not required by law. Electronically signed by: Denzel Multani M.D. 03/15/2022 5:23 PM
--- NOTE | 2022-03-15 17:32 | CT Scan Report ---
CTA ANGIOGRAPHY OF THE HEAD CLINICAL HISTORY: Stroke Like Symptoms COMPARISON STUDY: No previous studies for comparison. TECHNIQUE: Helical axial images of the head were obtained following uneventful intravenous administr ation of 120 cc of Optiray. Sagittal and coronal reconstructions were viewed as well as maximal inten sity projections on an independent 3-D workstation. Automated exposure control was utilized for the study. A dose lowering technique was utilized adhering to the principles of ALARA. FINDINGS: Head CT will be reported separately. No acute intracranial hemorrhage is depicted on that e xam. Ventricular system is normal. Small amount of fluid within the right mastoid air cells is noted. There is mild ethmoid sinus mucosal thickening. The bilateral M1 and A1 segments are patent. Note is made of occlusion of the left A2 segment shown on axial image 125 of 249. There is distal reconstitu tion. There is additional occlusion of a smaller distal branches of the left anterior cerebral artery shown on axial image 174 of 249 as well as axial image 130 of 249. Bilateral M2 segments are intact. Posterior circulation is unremarkable. There is no intracranial aneurysm. There is no dissection wit hin the intracranial vessels. IMPRESSION: Abrupt occlusion with reconstitution of the left A2 segment. In addition, occlusion of s everal smaller branches of the left anterior cerebral artery, as described above. Findings discussed with Dr. Lopez at time of dictation. ACT 112: Negative or not required by law. Electronically signed by: Denzel Multani M.D. 03/15/2022 5:30 PM
[2022-03-15 17:54] LABS: Basophils # (auto) 0.04 K/uL (0-0.2); Basophils % (auto) 0.3 %; Eosinophils # (auto) 0.14 K/uL (0-0.5); Eosinophils % (auto) 1.1 %; Hematocrit (blood only) 39.1 % (42-52); Hemoglobin 13.3 g/dL (14.0-18.0); Immature Granulocytes # (auto) 0.02 K/uL (0.00-0.02); Immature Granulocytes % (auto) 0.2 %; Lymphocytes # (auto) 1.06 K/uL (1.2-3.4); Lymphocytes % (auto) 8.5 %; Mean Corpuscular Hemoglobin 30.4 pg (25-34); Mean Corpuscular Volume 89.3 fL (80-100); Mean Platelet Volume 9.4 fL (7.4-10.4); Monocytes # (auto) 0.75 K/uL (0.11-0.59); Neutrophils % (auto) 83.9 %; Platelet Count 322 K/uL (130-400); RDW Coefficient of Variation 12.8 % (11.5-14.5); RDW Standard Deviation 41.7 fL (36.4-46.3); Red Blood Count 4.38 M/uL (4.7-6.1); White Blood Count 12.51 K/uL (4.8-10.8)
[2022-03-15 18:09] LABS: Albumin Globulin Ratio 1.7 (0.9-2); Albumin Level 4.3 gm/dl (3.4-5.0); BUN Creatinine Ratio 18.6 (10-20); Bilirubin,Total 0.6 mg/dl (0.2-1.0); Calcium 8.9 mg/dl (8.5-10.1); Creatinine Clr Calc Pharmacy 73.1 ml/min; Est GFR (African American) 77.3 ml/min; Est GFR (Non-African American) 66.7 ml/min; Globulin 2.6 gm/dl (2.5-4.0); Magnesium 2.1 mg/dl (1.7-2.4); Potassium 4.4 mmol/L (3.5-5.1); Total Protein 6.9 gm/dl (6.0-8.3)
[2022-03-15] MEDS ORDERED: ASPIRIN CHEW 324 MG PO STA (18:09)
[2022-03-15] MEDS ORDERED: ACETAMINOPHEN 1000 MG/100 ML IV IV STA (18:09)
[2022-03-15] MEDS ORDERED: CLOPIDOGREL BISULFATE 300 MG TAB PO STA (18:09)
[2022-03-15] MEDS ORDERED: LABETALOL HCL IV 5 MG/ML 20ML IV STA (18:10)
[2022-03-15 18:13] LABS: Troponin I High Sensitivity 3.6 pg/ml (0-20)
[2022-03-15 18:18] LABS: Partial Thromboplastin Ratio 0.8; Partial Thromboplastin Time 21.1 Seconds (21.0-31.0); Prothrombin Time 10.7 Seconds (9.0-12.0)
--- NOTE | 2022-03-15 18:51 | History & Physical Report ---
Date of Service March 15, 2022 Assessment & Plan (1) CVA (cerebral vascular accident): Plan: Concerning symptoms and CT findings for acute stroke. Loaded with Plavix and aspirin. Cont DAPT in am. Add Liptior 40mg daily. Permissive hypertension, HOB elevated, cont close monitoring on telemetry. Still with ongoing symptoms of numbess and weakness on the R compared to L side. Neurology, PT/OT/speech consulted. (2) Essential (primary) hypertension: Plan: Allow permissive HTN for 48 hours. Hold home losartan. (3) DVT prophylaxis: Plan: Lovenox Full Code Dispo-to home pending further workup and neurology evaluation. [facility] History of Present Illness Chief Complaint: stroke symptoms on right side Primary Care Provider: Romel Sparks MD 61 yo M presents today with stroke symptoms. He woke up and went to his shop, started feeling tired around 1p, went in to take a nap. When walking into his house, right foot got heavy and he couldn't control it. The longer he sat, the more he couldn't lift his right leg. [place] this heaviness travel to his right arm. Didn't know if there was tingling. Lasted about an hour. Wasn't sure if he had trouble speaking. Lost control of his urine at that time. He fell asleep; was very fatigued. He then tried to get up and couldn't get up or walk. After 1-1.5hr he recovered in his arm first and then his right leg. arrived at the house around 330p-4 and called the ambulance. DEnies chest pain, SOB, fevers, chills or other issues at this time. When he arrived into the ER he then felt some tingling in the fingertips, still tingly, He also had a headache, top of his eyes, described as dull and was given tylenol. He passed a bedside swallow study and has had two cups of water successfully. Allergies Allergy/AdvReac Type Severity Reaction Status Date / Time Sulfa (Sulfonamide Allergy Unknown Hives Verified 03/15/22 17:19 Antibiotics) Home Medications Medication Instructions Recorded Confirmed Type losartan 50 mg tablet 50 mg PO DAILY 03/15/22 03/15/22 History Past Med/Surg History Medical History Allergic rhinitis Essential (primary) hypertension History of 2019 novel coronavirus disease (COVID-19) Surgical History History of carpal tunnel release History of surgery on arm History of tonsillectomy S/P right knee surgery Family History Mother Stroke, Onset Age: 60 Father Dementia Social History Smoking Status: Never smoker Hx Alcohol Use: Yes (1-2 per month) Hx Substance Use: No Preferred Language: Greek Current Living Situation: Spouse current occupational status: retired 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 Physical Exam Physical Exam: CONSTITUTIONAL: WNWD, vitals as above, generally well- appearing, NAD EYES: EOMI bilaterally, PERRL, normal conjunctivae, no scleral icterus, ENT: external ear and nose normal, oropharynx clear, MMM NECK: trachea midline, RESPIRATORY: clear to auscultation bilaterally, no crackles, rales or wheezes, normal respiratory effort CARDIOVASCULAR: regular rate and rhythm, S1 and 2 heard without murmurs, gallops or rubs, no JVD, no peripheral edema CHEST: inspection of chest was normal GASTROINTESTINAL: soft, nontender, ND, no guarding MUSCULOSKELETAL: strength 5/5 throughout x RUE 4/5 biceps flexion, very subtle decrease in strength in RLE WRT knee flexion/extension, hand cullet trucker equal and strong bilaterally, head is normocephalic and atraumatic SKIN: warm and dry, NEUROLOGIC: patellar DTRs 2+ bilat. no facial droop, no dysarthria. Touch, pain and proprioception normal. CN 2-12 intact, +decreased sensation in right C7,C8,T1 dermatomes (arm/hand) and right L4-S1 dermatomes (leg). Normal cognition, normal speech, no tremor PSYCHIATRIC: alert cooperative and oriented to person, place and time. Euthymic mood, makes good eye contact, language grossly intact, recent and remote memory grossly intact. Results & Data Results & Data ([facility]) Vital Signs (Past 12 Hours) Vital Signs Temp Pulse Pulse Resp BP Pulse Ox 03/15/22 17:21 90 24 161/115 H 97 03/15/22 17:15 37.1 C 92 H Laboratory Results Short CBC 03/15/22 Range/Units 16:52 WBC 12.51 H (4.8-10.8) K/uL Hgb 13.3 L (14.0-18.0) g/dL Hct 39.1 L (42-52) % Plt Count 322 (130-400) K/uL BMP 03/15/22 16:52 Sodium 137 Potassium 4.4 Chloride 105 Carbon Dioxide 26 BUN 22 Creatinine 1.18 Glucose 81 Calcium 8.9 Liver Function 03/15/22 Range/Units 16:52 Total Bilirubin 0.6 (0.2-1.0) mg/dl AST 14 (13-39) U/L ALT 15 (7-52) U/L Alkaline Phosphatase 51 (34-104) U/L Albumin 4.3 (3.4-5.0) gm/dl Diagnostic Findings Head CT 03/15/22 16:57 CT OF THE HEAD WITHOUT CONTRAST CLINICAL HISTORY: Stroke Like Symptoms COMPARISON STUDY: No previous studies for comparison. TECHNIQUE: Helical axial images of the head were obtained without IV contrast. Automated exposure control was utilized for the study. A dose lowering technique was utilized adhering to the principles of ALARA. FINDINGS: No acute intracranial hemorrhage, midline shift or mass effect is present. The ventricular system is unremarkable. The basal cisterns are patent. No extra-axial collections are present. There are no findings to suggest acute dural sinus thrombosis or acute territorial infarct. No significant calvarial abnormalities are present. There is mild ethmoid sinus mucosal thickening. Small amount of fluid within the right mastoid air cells is present. IMPRESSION: No acute intracranial findings. ACT 112: Negative or not required by law. Electronically signed by: Denzel Multani M.D. 03/15/2022 5:14 PM Head CTA 03/15/22 16:57 CTA ANGIOGRAPHY OF THE HEAD CLINICAL HISTORY: Stroke Like Symptoms COMPARISON STUDY: No previous studies for comparison. TECHNIQUE: Helical axial images of the head were obtained following uneventful intravenous administration of 120 cc of Optiray. Sagittal and coronal reconstructions were viewed as well as maximal intensity projections on an independent 3-D workstation. Automated exposure control was utilized for the study. A dose lowering technique was utilized adhering to the principles of ALARA. FINDINGS: Head CT will be reported separately. No acute intracranial hemorrhage is depicted on that exam. Ventricular system is normal. Small amount of fluid within the right mastoid air cells is noted. There is mild ethmoid sinus mucosal thickening. The bilateral M1 and A1 segments are patent. Note is made of occlusion of the left A2 segment shown on axial image 125 of 249. There is distal reconstitution. There is additional occlusion of a smaller distal branches of the left anterior cerebral artery shown on axial image 174 of 249 as well as axial image 130 of 249. Bilateral M2 segments are intact. Posterior circulation is unremarkable. There is no intracranial aneurysm. There is no dissection within the intracranial vessels. IMPRESSION: Abrupt occlusion with reconstitution of the left A2 segment. In addition, occlusion of several smaller branches of the left anterior cerebral artery, as described above. Findings discussed with Dr. Lopez at time of dictation. ACT 112: Negative or not required by law. Electronically signed by: Denzel Multani M.D. 03/15/2022 5:30 PM Neck CTA 03/15/22 16:57 CT ANGIOGRAPHY OF THE NECK WITH CONTRAST CLINICAL HISTORY: Stroke Like Symptoms COMPARISON STUDY: No previous studies for comparison. Technique: CT angiography of the carotid and vertebral arteries was obtained using Optiray and 3D reconstruction on an independent workstation. NASCET criteria was utilized. Automated exposure control was utilized for the study. A dose lowering technique was utilized adhering to the principles of ALARA. CT DOSE: 1152.66 mGy.cm Findings: Subpleural densities within the lung apices favor scarring. There is no cervical lymphadenopathy. No acute cervical spine fracture is noted. There is moderate plaque within the left carotid bifurcation without stenosis. There is mild to moderate plaque within the right carotid bifurcation without stenosis. There is no dissection within the major vessels of the neck. There is no aneurysm. Bilateral vertebral arteries are patent. IMPRESSION: 1. No dissection or significant stenosis within the bilateral common carotid, cervical internal carotid or vertebral arteries. 2. Moderate atherosclerotic plaque within the bilateral carotid bifurcations, greater on the left. ACT 112: Negative or not required by law. Electronically signed by: Denzel Multani M.D. 03/15/2022 5:23 PM Code Status & VTE Plan VTE Prophylaxis Plan VTE Prophylaxis will be ordered: Yes
--- NOTE | 2022-03-15 20:56 | Magnetic Resonance Report ---
MRI OF THE BRAIN WITHOUT CONTRAST CLINICAL HISTORY: stroke by exam and CT COMPARISON STUDY: Head CT and CTA of the head performed earlier today. TECHNIQUE: Utilizing a 1.5 Danae magnet and dedicated coil, multiplanar, multiecho imaging of the bra in was performed without IV contrast. FINDINGS: Note is made of a small focus of restricted diffusion within the superior left frontal lobe which measures approximately 2 cm in extent. There is mild associated T2 hyperintensity. There is no mass effect. No hemorrhage is present. No additional foci of restricted diffusion are present. Ventr icular system is unremarkable. Basal cisterns are patent. There are no extra-axial collections. Flow- voids for the major intracranial vessels are present. Calvarial signal is within normal limits. Fluid within the right mastoid air cells is present. There is moderate ethmoid sinus mucosal thickening. N o intracranial masses identified on this unenhanced exam. There may be an old lacunar infarct within the left internal capsule. IMPRESSION: Small focus of restricted diffusion, measuring approximately 2 cm in extent, within the superior left frontal lobe consistent with an acute infarct. No mass effect. No hemorrhage. ACT 112: Negative or not required by law. Electronically signed by: Denzel Multani M.D. 03/15/2022 8:54 PM
[2022-03-15] MEDS ORDERED: ATORVASTATIN 40 MG TAB PO SCH (21:07)
[2022-03-15] MEDS ORDERED: POLYETHYLENE (MIRALAX) 17 GM PACK PO PRN (21:07)
[2022-03-15] MEDS ORDERED: PHARMACIST DISCHARGE MED REC CONSULT PRN (21:07)
[2022-03-15] MEDS ORDERED: ACETAMINOPHEN 325 MG TAB PO PRN (22:00)
[2022-03-16 06:58] LABS: Basophils # (auto) 0.03 K/uL (0-0.2); Basophils % (auto) 0.5 %; Eosinophils # (auto) 0.17 K/uL (0-0.5); Eosinophils % (auto) 2.6 %; Hematocrit (blood only) 39.5 % (42-52); Hemoglobin 13.6 g/dL (14.0-18.0); Lymphocytes # (auto) 1.71 K/uL (1.2-3.4); Lymphocytes % (auto) 26.6 %; Mean Corpuscular Hemoglobin 30.4 pg (25-34); Mean Corpuscular Hgb Conc 34.4 g/dL (32-36); Mean Corpuscular Volume 88.2 fL (80-100); Mean Platelet Volume 8.9 fL (7.4-10.4); Monocytes # (auto) 0.46 K/uL (0.11-0.59); Monocytes % (auto) 7.2 %; Neutrophils # (auto) 4.05 K/uL (1.4-6.5); Neutrophils % (auto) 63.1 %; Platelet Count 311 K/uL (130-400); RDW Coefficient of Variation 12.8 % (11.5-14.5); RDW Standard Deviation 41.5 fL (36.4-46.3); Red Blood Count 4.48 M/uL (4.7-6.1); White Blood Count 6.42 K/uL (4.8-10.8)
[2022-03-16 07:21] LABS: BUN Creatinine Ratio 20.5 (10-20); Calcium 8.7 mg/dl (8.5-10.1); Chol HDL Ratio 3.1 (0-5); Creatinine Clr Calc Pharmacy 103.9 ml/min; Est GFR (African American) 110.8 ml/min; Est GFR (Non-African American) 95.6 ml/min; Potassium 3.8 mmol/L (3.5-5.1)
--- NOTE | 2022-03-16 07:21 | Ultrasound Report ---
US carotid doppler BI CLINICAL HISTORY: 61 years-old Male with look further into carotid disease,per neurology. Acute infa rct of the left frontal lobe. COMPARISON: Brain MRI of same day TECHNIQUE: Multiple real time sonographic images of the carotid bifurcations were obtained assessing fitzpatrick scale, color Doppler and spectral wave form appearance FINDINGS: RIGHT CAROTID: The peak systolic velocity measured within the right ICA is 75 cm/sec. The end diast olic velocity measured 37 cm/sec. The ICA to CCA ratio measured 1.4 which correlates with a stenosis of 0-50%. Mild atherosclerotic plaque of the right carotid bulb. LEFT CAROTID: The peak systolic velocity measured within the left ICA is 61 cm/sec. The end diastol ic velocity measured 22 cm/sec. The ICA to CCA ratio measured 0.9 which correlates with a stenosis of 0-50%. Mild atherosclerotic plaque of the left carotid bulb. There is normal antegrade vertebral flow bilaterally. IMPRESSION: 1. Atherosclerotic plaque of the carotid bulbs without hemodynamically significant stenosis. 2. Normal antegrade vertebral flow bilaterally. ACT 112: Negative or not required by law. The above report was generated using voice recognition software. It may contain grammatical, syntax o r spelling errors. Electronically signed by: Mendez Villagomez M.D. 03/16/2022 7:20 AM
[2022-03-16 07:56] LABS: Estimated Average Glucose 111 mg/dl; Hemoglobin A1C 5.5 % (4.5-5.6)
[2022-03-16] MEDS ORDERED: CLOPIDOGREL BISULFATE 75 MG TAB PO SCH (09:00)
[2022-03-16] MEDS ORDERED: ENOXAPARIN INJ 40 MG/0.4 ML SYR SQ SCH (09:00)
[2022-03-16] MEDS ORDERED: ASPIRIN 81 MG ECTAB PO SCH (09:00)
--- NOTE | 2022-03-16 09:39 | Neurology Consultation ---
Date of Consultation March 16, 2022 Assessment & Plan (1) Acute CVA (cerebrovascular accident): 1. MRI brain- left frontal lobe infarct 2. CTA head -abrupt occlusion with reconstitution of flow 3. TTE - no ASD 4. PT/OT for discharge needs 5. optimize HTN HLD, DM LDL <70 6. aspirin 81 mg and plavix 75 mg daily x 21 days then aspirin 81 mg alone for life. will see in neurology 4-6 weeks after discharge. (2) Acute right-sided weakness: 1. resolved Supervising Physician Co-Signing Physician Notes I have seen and discussed above patient with Dr Harish Sanches, neurology I have examined and interviewed Mr. Peguero today who is a 61-year-old man with recently diagnosed hypertension, family history for cerebrovascular disease in his mother who still is alive at 90 and otherwise few vascular risk factors although we are not going to be doing his hypertension and any marginal dyslipidemia with little more aggression than previously. Graph he presented with what sounds like a very localized small vessel event involving the left cerebral cortex starting with motor dysfunction on the right foot and leg which descended to involve the right arm over a period of about half an hour or so and was accompanied by diaphoresis, urinary frequency and some incontinence but no involuntary motor activity and [place] no sensory symptomatology and then began to spontaneously improve and by the time he presented to the emergency room he was out of the tPA window but was significantly better and continues to be almost back to his baseline now with perhaps some minimal clumsiness of the right leg at most Evaluation showed bilateral atheromatous disease and nonflow reduction type in the carotid bifurcations, some suggestion of occlusion and reconstitution of the left A2 segment of the internal carotid artery which would not fit anatomically with his deficits that are seen on MRI scan and echocardiogram that shows no significant potential source of emboli including an absence of a right to left shunt through a PFO He was appropriately been loaded up with Plavix is now on aspirin and Plavix together and should be maintained on it for about 3 weeks. He is going to need his lipids aggressively managed for probable lower target LDL then previously and will let his primary care physician address that issue and blood pressure control is going to have to be optimized and managed along with the standard vascular risk factors While I doubt this was an embolic affair based on the history we are going to arrange for an outpatient Zio patch and will see him in our office after discharge in about 3 to 4 weeks Fortunately while we do see evidence for a probable completed stroke on MRI, he has very few clinical manifestations including absence of any language dysfuncti on which is fortunate in a left hemispheric dominant man Harish Sanches MD The above note was generated utilizing voice recognition technology and may have spelling errors punctuation errors pronoun usage errors and syntax errors History of Present Illness Reason for Consultation: Acute stroke right sided symptoms Requesting Physician: Natalie Krishnamurthy DO Attending Physician: Natalie Krishnamurthy DO History of Present Illness Grey 61 year old male presents [facility]15[facility]22 with stroke symptoms. He woke up and went to his shop, started feeling tired around 1p, went in to take a nap. When walking into his house, right foot got heavy and he couldn't control it. The longer he sat, the more he couldn't lift his right leg. [place] this heaviness travel to his right arm. Didn't know if there was tingling. Lasted about an hour. Wasn't sure if he had trouble speaking. Lost control of his urine at that time. He fell asleep; was very fatigued. He then tried to get up and couldn't get up or walk and recovered after 1-1.5 hr first in his arm first and then his right leg. In the ER he then felt some tingling in the fingertips, and a headache, top of his eyes, described as dull and was given tylenol.He is now back to baseline. denies CP, SOB, abdominal pain, N, V. Allergies Allergy/AdvReac Type Severity Reaction Status Date / Time Sulfa (Sulfonamide Allergy Unknown Hives Verified 03/15/22 17:19 Antibiotics) Home Medications Medication Instructions Recorded Confirmed Type losartan 50 mg tablet 50 mg PO DAILY 03/15/22 03/15/22 History Patient History Medical History Allergic rhinitis Essential (primary) hypertension History of 2019 novel coronavirus disease (COVID-19) Surgical History History of carpal tunnel release History of surgery on arm History of tonsillectomy S/P right knee surgery Family History Mother Stroke, Onset Age: 60 Father Dementia Social History Smoking Status: Never smoker Hx Alcohol Use: Yes Hx Substance Use: No Preferred Language: Estonian Communication Ability: Effective Nut Sorter Required: No Beliefs That Will Affect Care: None marital status: Current Living Situation: Spouse Current Living Situation Comment: Home with current occupational status: retired current occupation: owns [employer] Other Information That Helps Us Care for You: No Feels Safe at Home: Yes Safety Concerns: Feels Safe At This Time Assistive Devices: None Review of Systems Review of Systems: All systems reviewed & are unremarkable except as noted in HPI & below Physical Exam Physical Exam: Physical Exam: Constitutional: appearance nourished, healthy and normal Ears, Nose, Mouth and Throat: mucous membranes moist, no injection and skin normal, eyes normal Cardiovascular: normal S-1 and S-2 and regular rate and rhythm Respiratory: clear to auscultation (CTA) and no rales, rhonchi or wheeze Musculoskeletal: no peripheral edema and good distal pulses Skin: no stigmata of neurocutaneous disease noted and normal and intact Eyes: extraocular muscles intact (EOMI) and pupils equal, round and reactive to light (PERRL) NEUROLOGIC EXAMINATION: Mental status: Alert and interactive Oriented to full date and location Oriented to person Speech fluent with no evidence of aphasia Cranial Nerves smile eye brow raise symmetric Reflexes: Deep tendon reflexes were symmetrical and graded 2/5. down going toes Sensory: light cool touch Coordination: Romberg absent, finger to nose Gait/Stance: Posture normal. Gait normal: with steady with steps, base, turning, heel and toe walking and tandem gait. Motor: Negative for pronator drift of out stretched arms with eyes closed. Strength: biceps triceps deltoid hand student activities director bilaterally 5/5, hip flex 5/5 Results & Data ([facility]) Vital Signs (Past 12 Hours) Vital Signs Temp Pulse Pulse Resp BP Pulse Ox 03/16/22 07:41 36.7 C 74 18 150/106 H 99 03/16/22 03:39 36.8 C 68 18 134/83 97 03/16/22 00:54 65 150/93 H 03/16/22 00:03 75 03/15/22 23:29 82 03/15/22 22:58 36.8 C 74 18 144/107 H 98 03/15/22 22:53 36.5 C 68 16 143/98 H 98 Laboratory Results Abnormal lab results 03/15/22 03/15/22 03/15/22 Range/Units 16:47 16:52 16:55 WBC 12.51 H (4.8-10.8) K/uL RBC 4.38 L (4.7-6.1) M/uL Hgb 13.3 L (14.0-18.0) g/dL POC Hgb 13.3 L (14.0-18.0) g/dl Hct 39.1 L (42-52) % POC Hct 39 L (42-52) % Neut # (Auto) 10.50 H (1.4-6.5) K/uL Lymph # (Auto) 1.06 L (1.2-3.4) K/uL [place] # (Auto) 0.75 H (0.11-0.59) K/uL Chloride (98-107) mmol/L POC Total CO2 23 L (24-31) mmol/L POC BUN 22 H (7-18) mg/dl BUN/Creatinine Ratio (10-20) POC Glucose 104 H (70-99) mg/dl 03/16/22 03/16/22 Range/Units 06:37 06:37 WBC (4.8-10.8) K/uL RBC 4.48 L (4.7-6.1) M/uL Hgb 13.6 L (14.0-18.0) g/dL POC Hgb (14.0-18.0) g/dl Hct 39.5 L (42-52) % POC Hct (42-52) % Neut # (Auto) (1.4-6.5) K/uL Lymph # (Auto) (1.2-3.4) K/uL [place] # (Auto) (0.11-0.59) K/uL Chloride 109 H (98-107) mmol/L POC Total CO2 (24-31) mmol/L POC BUN (7-18) mg/dl BUN/Creatinine Ratio 20.5 H (10-20) POC Glucose (70-99) mg/dl Diagnostic Findings CT head-No acute intracranial findings. CTA head-Abrupt occlusion with reconstitution of the left A2 segment. In addition, occlusion of several smaller branches of the left anterior cerebral artery, as described above. CTA neck-No dissection or significant stenosis within the bilateral common carotid, cervical internal carotid or vertebral arteries. Moderate atherosclerotic plaque within the bilateral carotid bifurcations, greater on the left. MRI brain-Small focus of restricted diffusion, measuring approximately 2 cm in extent, within the superior left frontal lobe consistent with an acute infarct. No mass effect. No hemorrhage. carotid doppler- Atherosclerotic plaque of the carotid bulbs without hemodynamically significant stenosis. Normal antegrade vertebral flow bilat erally. TTE 60-65% EF with no ASD
--- NOTE | 2022-03-16 11:23 | Electrocardiogram Report ---
Test Reason : Blood Pressure : / mmHG Vent. Rate : 083 BPM Atrial Rate : 083 BPM P-R Int : 152 ms QRS Dur : 082 ms QT Int : 386 ms P-R-T Axes : 023 009 041 degrees QTc Int : 453 ms Normal sinus rhythm Nonspecific ST abnormality Abnormal ECG When compared with ECG of 26-SEP-2016 16:11, T wave amplitude has decreased in Anterior leads Confirmed by Carlos Green ([id number]) on 03/16/2022 11:23:10 AM Referred By: REFERRED SELF Confirmed By:Carlos Green
--- NOTE | 2022-03-16 12:09 | Electrocardiogram Report ---
Test Reason : Blood Pressure : / mmHG Vent. Rate : 063 BPM Atrial Rate : 063 BPM P-R Int : 152 ms QRS Dur : 086 ms QT Int : 432 ms P-R-T Axes : 011 016 015 degrees QTc Int : 442 ms Normal sinus rhythm Normal ECG When compared with ECG of 15-MAR-2022 16:42, (unconfirmed) No significant change was found Confirmed by Carlos Green ([id number]) on 03/16/2022 12:08:50 PM Referred By: REFERRED SELF Confirmed By:Carlos Green
--- NOTE | 2022-03-16 14:02 | Discharge Summary ---
Date of Service March 16, 2022 Admission HPI Per Admitting Provider 61 yo M presents today with stroke symptoms. He woke up and went to his shop, started feeling tired around 1p, went in to take a nap. When walking into his house, right foot got heavy and he couldn't control it. The longer he sat, the more he couldn't lift his right leg. [place] this heaviness travel to his right arm. Didn't know if there was tingling. Lasted about an hour. Wasn't sure if he had trouble speaking. Lost control of his urine at that time. He fell asleep; was very fatigued. He then tried to get up and couldn't get up or walk. After 1-1.5hr he recovered in his arm first and then his right leg. arrived at the house around 330p-4 and called the ambulance. DEnies chest pain, SOB, fevers, chills or other issues at this time. When he arrived into the ER he then felt some tingling in the fingertips, still tingly, He also had a headache, top of his eyes, described as dull and was given tylenol. He passed a bedside swallow study and has had two cups of water successfully. Principal Diagnosis Left frontal lobe stroke Discharge Exam CONSTITUTIONAL: WNWD, vitals as above, generally well-appearing, NAD EYES: EOMI bilaterally, PERRL, normal conjunctivae, no scleral icterus, ENT: external ear and nose normal, oropharynx clear, MMM NECK: trachea midline, RESPIRATORY: clear to auscultation bilaterally, no crackles, rales or wheezes, normal respiratory effort CARDIOVASCULAR: regular rate and rhythm, S1 and 2 heard without murmurs, gallops or rubs, no JVD, no peripheral edema CHEST: inspection of chest was normal GASTROINTESTINAL: soft, nontender, ND, no guarding MUSCULOSKELETAL: strength 5/5 throughout x RUE 4/5 biceps flexion, very subtle decrease in strength in RLE WRT knee flexion/extension, hand student support advisor equal and strong bilaterally, head is normocephalic and atraumatic SKIN: warm and dry, NEUROLOGIC: patellar DTRs 2+ bilat. no facial droop, no dysarthria. Touch, pain and proprioception normal. CN 2-12 intact, +decreased sensation in right C7,C8,T1 dermatomes (arm/hand) and right L4-S1 dermatomes (leg). Normal cognition, normal speech, no tremor PSYCHIATRIC: alert cooperative and oriented to person, place and time. Euthymic mood, makes good eye contact, language grossly intact, recent and remote memory grossly intact. Discharge Data Allergies Allergy/AdvReac Type Severity Reaction Status Date / Time Sulfa (Sulfonamide Allergy Unknown Hives Verified 03/15/22 17:19 Antibiotics) Consultations 03/15/22 18:27 ED Decision to Admit Stat 03/15/22 21:07 Consult Neurology Routine Ordered Studies 03/15/22 16:57 CT angio head w con Stat CT angio neck with con Stat CT head/brain wo con Stat 03/15/22 18:09 MR brain wo con Stat 03/15/22 21:07 US carotid doppler BI Routine Hospital Course (1) CVA (cerebral vascular accident): Concerning symptoms and CT findings for acute stroke. Loaded with Plavix and aspirin. Cont DAPT in am. Add Liptior 40mg daily. Permissive hypertension, HOB elevated, cont close monitoring on telemetry. Still with ongoing symptoms of numbess and weakness on the R compared to L side. Neurology, PT/OT/speech consulted. (2) Essential (primary) hypertension: Allow permissive HTN for 48 hours. Hold home losartan. (3) DVT prophylaxis: Lovenox Full Code Dispo-to home pending further workup and neurology evaluation. Natalie Krishnamurthy DO [facility] Hospitalist (4) Hemiparesis affecting right side as late effect of stroke: R Hemiparesis due to CVA Discharge Plan Discharge Items Patient Disposition: Home - Self-Care Reason For Visit: ACUTE STROKE Discharge Diagnosis: Left frontal lobe stroke Condition on Discharge: Good Activity: Resume your previous activity Non-emergency contact: Primary Care Provider Call non-emergency contact if: you have any medication questions, your symptoms worsen, your pain is worsening, your pain is unusual for you and your pain is concerning for you Follow-up/Referrals: Romel Sparks MD [Primary Care Provider] - (Date & Time 03/23/2022 4:00 PM Provider Oksana Reed MD Department General Internal Medicine [facility] ) Denise Ramos PA-C [Physician Press Manager] - (Date & Time 04/19/2022 11:20 AM Provider Denise Ramos PA-C Department Neurology [facility] ) Diet: Low Sodium (2gm) Addtl Attending Provider Instructions: Please take medications as instructed on discharge list below. It is recommended that you follow-up with your primary care doctor (PCP) and neurology at the date and time provided above. This is important to ensure you are doing well on new medication and to further investigate for cause of stroke. Your PCP will be responsible for giving you refills as needed. You are just being provided the first 30 days of medication. As you are being placed on 2 new blood thinners please watch for any signs of bleeding and avoid taking additional blood thinners including nonsteroidal anti- inflammatory drugs such as Motrin, ibuprofen, Aleve or naproxen. It was a pleasure taking care of you! Please call if you have any questions or problems. You can reach a [facility] hospitalist on duty at [facility] 24 hours a day by calling [phone]. Take care of yourself. Natalie Krishnamur[facility] DO [facility] Pending Studies at Discharge: No Stand-Alone Forms: My [facility] Medications and DC Order Prescriptions: New clopidogrel 75 mg Tablet 75 mg PO QAM Qty: 30 RF: 0 atorvastatin 40 mg Tablet 40 mg PO HS Qty: 30 RF: 0 aspirin 81 mg Tablet,Delayed Release (Dr/Ec) 81 mg PO QAM Qty: 90 RF: 0 Continued losartan 50 mg tablet 50 mg PO DAILY RF: 0 Discharge Orders: Discharge Order (Routine); Ordered 03/16/22 Ordered By: Natalie Krishnamurthy Admission Data Admit Date/Time: 03/15/22 18:44 Attending Provider: Natalie Krishnamurthy Admit Provider: Natalie Krishnamurthy Primary Care Provider: Romel Sparks Other Providers: Natalie Krishnamurthy ; Harish Sanches
[2022-03-16] MEDS ORDERED: STROKE PATIENT DISCHARGE STA (17:44)
--- NOTE | 2022-03-16 18:26 | Pharmacy Report ---
Pharmacist Stroke Counseling - Date of Service March 16, 2022 - Scope: Pharmacy has been consulted to provide medication discharge counseling for this patient admitted with ischemic stroke as per the Pharmacist Discharge Counseling for Stroke Patients Protocol. - Medications on Discharge: Home Medications Medication Instructions Recorded Confirmed losartan 50 mg tablet 50 mg PO DAILY 03/15/22 03/15/22 New Rx's Medication Instructions Recorded aspirin 81 mg tablet,delayed 81 mg PO QAM #90 tab 03/16/22 release atorvastatin 40 mg tablet 40 mg PO HS #30 tab 03/16/22 clopidogrel 75 mg tablet 75 mg PO QAM #30 tab 03/16/22 - Action: The above medications, specifically ones for stroke treatment/prophylaxis, have been reviewed in detail with the patient prior to discharge. This includes indication, common adverse reactions, drug interactions, and medication administration. Medication counseling has been employed using the teach-back method to ensure understanding. - Outcome: The patient demonstrated understanding of the medications. Additional comments: - Instructed patient he is due for a dose of Lipitor this evening but medication does not have to be taken at night. - Counseling performed via telephone Thank you for allowing pharmacy to be involved in the care of this patient. Please call [phone] with any additional questions
== END 2022-03-16 18:42 | disposition home or self-care (01) | DRG 65 ==
LOC: ED 16:34 → 2E 18:44